=== PATIENT | male | born 1965 | race African-American/Black ===

== ENCOUNTER 2024-02-14 08:34 | Emergency (ER) | payer OTHER, SELFPAY ==
[2024-02-14 08:54] VITALS: BP 173/102; PULSE 75; RESP 17; TEMP 36.5; O2SAT 99; BMI 42.2
[2024-02-14] MEDS: TETRACAINE PF OP SOL 0.5% 4 ML DRPETTE 1 DROP BOTH EYES (09:13)
[2024-02-14] MEDS: FLUORESCEIN SOD 1 MG STRP BOTH EYES (09:13)
--- NOTE | 2024-02-14 09:23 | EDNOTE_ITS ---
ED Eye Problem RME/HPI General Chief complaint: Eye Problems Stated complaint: SOMETHING IN RIGHT EYE Time Seen by Provider: 02/14/24 08:54 Arrival date/time: 02/14/24 08:34 RME / HPI RME / HPI Narrative: 58 year old male with history of hypertension presents to the ED for evaluation of right eye pain today. States he woke this morning and rubbed his eyes that was immediately followed by pain and burning sensation to the right eye. Denies use of contacts and states he went to bed at his usual state of health. No other associated symptoms or complaints reported. No known trauma. Related Data Previous Rx's ?Medication ?Instructions ?Recorded bacitracin 500 unit/gram eye 1 applic ophthalmic (eye) Q6HR 7 02/14/24 ointment days #3.5 grams Allergies Allergy/AdvReac Type Severity Reaction Status Date / Time amoxicillin Allergy Severe Hives Verified 02/14/24 08:36 Penicillins Allergy Severe Hives Verified 02/14/24 08:36 banana Allergy Intermediate Fainting Verified 02/14/24 08:36 Review of Systems Review of Systems Narrative Review of Systems: GEN: No fever, no chills, no weight loss EYES: +right eye pain. No discharge, no visual changes HEENT: No ear pain, no congestion, no sore throat PULM: No shortness of breath, no cough, no congestion CV: No chest pain, no dyspnea on exertion, no palpitations GI: No nausea, no vomiting, no diarrhea, no pain, no constipation : No frequency, no urgency, no dysuria MUSC/SKEL: No joint pain, no back pain SKIN: No rash NEURO: No weakness, no headache Past Medical History Past Medical History CARDIAC: Positive Hypercholesterolemia and Hypertension GENITOURINARY: Positive Prostate Cancer MUSCULOSKELETAL: Positive Carpal Tunnel Syndrome PSYCHO/SOCIAL: Positive Depression and Anxiety OTHER HISTORY: Positive Prostate Cancer Family History FAMILY HISTORY: Positive Family Cancer (PROSTATE CANCER) Social History SMOKING STATUS: Current every day smoker ED Exam Narrative Physical exam: GENERAL APPEARANCE:? alert and oriented x 4, well-developed, well-nourished HEENT: normocephalic, atraumatic; pupils 2-3mm and reactive to light bilaterally. Alfaro lamp exam: Tetracaine drops used. Fluorescein stain with wood's lamp exam reveals mild diffuse uptake, no conjunctiva abrasion or foreign body. NECK: supple LUNGS: no respiratory distress, normal effort HEART: good peripheral perfusion ABDOMEN: non distended EXTREMITIES:? atraumatic NEUROLOGIC: awake; alert and oriented x4; cranial nerves II-XII grossly intact PSYCHIATRIC:? appropriate mood and affect SKIN: warm, dry, normal color; no rashes Course Quality Measures none Orders Category Date Time Status Fluorescein Sodium [[id number]] Med 02/14/24 09:07 Discontinued 1 mg BOTH EYES X1 ONE TETRACAINE Op Caryl 0.5% [Pontocaine Op Caryl 0.5%] Med 02/14/24 09:10 Discontinued 1 drop BOTH EYES X1 ONE Vital Signs Vital signs: Vital Signs Temperature 97.7 F 02/14/24 08:54 Pulse Rate 75 02/14/24 08:54 Respiratory Rate 17 02/14/24 08:54 Blood Pressure 173/102 H 02/14/24 08:54 Pulse Oximetry (%) 99 02/14/24 08:54 Oxygen Delivery Method Room Air 02/14/24 08:54 Pulse ox is 99% on room air which is adequate. Procedures -ED Alfaro Lamp Exam Right eye: Flourescein uptake:: Yes Alfaro Lamp Findings: Other (Mild diffuse uptake, no corneal abrasion or ulcers) Eye MDM Narrative MDM Narrative:: Preethi Salcedo am scribing for and in the presence of Dr. Dumont. Patient data External records reviewed:: None (No previous visits for review) Clinical information provided by:: patient Social determinants that could affect healthcare access:: none Patient has the following chronic illnesses:: HTN How is presenting disease/condition affected by chronic disease/condition?: uneffected by Evaluation data The following diagnostics were reviewed and interpreted by me:: other (specify) (None ) Lab and/or radiology exams considered but not ordered:: None Interpretation Summary: No labs performed Examination reveals diffuse irritation, no corneal abrasions Medications / Prescriptions Medications or Prescriptions considered but not ordered:: None Medication administrations:: Medication Administration History Discontinued Medications Fluorescein Sodium (Fluorescein Sod 1 Mg Strp) 1 mg BOTH EYES X1 ONE Stop: 02/14/24 09:08 Last Admin: 02/14/24 09:13 Dose: 1 mg Documented By: GM Tetracaine HCl (Tetracaine Pf Op Caryl 0.5% 4 Ml Drpette) 1 drop BOTH EYES X1 ONE Stop: 02/14/24 09:11 Last Admin: 02/14/24 09:13 Dose: 1 drop Documented By: LISA Comments: 1 DROP FOR EACH EYE See above Consultations Consultation(s) initiated? (list below): No Diagnosis Eye Problem Differential Diagnosis: corneal abrasion, acute iritis and corneal ulcer Most likely diagnosis given after review of the tests above:: Conjuctivitis Admission Indicated Admission indicated?: not indicated Admission Request Was there a request for admission?: No Disposition Plan Disposition Plan: Discharge Discharge Attestation Discharge Attestation: The patient and all family members were given an opportunity to ask questions and understood the discharge instructions. Discharge instructions specifically effects, indications for sooner follow up or return to the emergency department, and the expected course of current diagnosis. Patient condition: Stable Discharge Plan Plan Patient Disposition: HOME (Self Care) Prescriptions/Referrals Prescriptions/Med Rec: New bacitracin 500 unit/gram ointment 1 applic ophthalmic (eye) Q6HR 7 Days Qty: 3.5 0RF Referrals: No Primary/Family,Physician [Primary Care Provider] - In 1 week Problem List Clinical Impression: Conjunctivitis Patient/Caregiver Discharge Instructions Education Materials: ED Conjunctivitis, Nonspecific Print Language: Israeli Stand Alone Forms: Kassidy Award Info., Patient Portal Info Letter
[2024-02-14 10:29] VITALS: BP 145/86; PULSE 61; RESP 17; TEMP 36.6; O2SAT 96
== END 2024-02-14 10:35 | disposition home or self-care (01) ==
PROVIDERS: Emergency Provider Emergency Medicine
DX: H10.9 Unspecified conjunctivitis (principal); I10 Essential (primary) hypertension
CPT/HCPCS: 99283